=== PATIENT | female | born 1970 | race Caucasian/White ===

== ENCOUNTER 2021-05-14 14:44 | Outpatient (RCR) | payer MEDICARE, OTHER ==
[~2021-05-14 14:44] MED LIST: AZTH250C PO
== END 2021-06-15 10:39 | disposition home or self-care (01) ==
PROVIDERS: ATTEND Family Medicine
DX: M47.816 Spondylosis without myelopathy or radiculopathy, lumbar region (principal); M41.9 Scoliosis, unspecified; Q90.9 Down syndrome, unspecified

== ENCOUNTER → 2022-02-04 | Outpatient (CLI) | payer MEDICARE, OTHER ==
--- NOTE | 2022-02-04 11:07 | Diagnostic Imaging Report ---
INDICATION: Dysphagia and choking. Study was performed in conjunction with speech pathology. Video fluoroscopy was performed during swallowing of barium multiple consistencies. 70 seconds of fluoroscopic time was utilized. Patient ingested thin liquid as well as an applesauce and cracker consistency. Oral phase unremarkable. There is normal epiglottic tilt and laryngeal elevation. No laryngeal penetration or aspiration was observed. There was some mild vallecular residue with the cracker consistency however this did clear with a swallowing of thin liquid. IMPRESSION: Essentially unremarkable modified barium swallow, as described. No laryngeal penetration or aspiration was observed. Dictated by: Dictated on workstation # [id number]
== END ==
LOC: RAD 10:13
PROVIDERS: ATTEND Family Medicine
DX: R13.12 Dysphagia, oropharyngeal phase (principal); R09.89 Other specified symptoms and signs involving the circulatory and respiratory systems
CPT/HCPCS: 74230